=== PATIENT | female | born 1945 | race Caucasian/White ===

== ENCOUNTER 2017-12-03 19:41 | Emergency (ER) | payer OTHER ==
[~2017-12-03] VITALS: Ht 156.2 cm; Wt 81.8 kg
[~2017-12-03 19:41] MED LIST: 1-ME1LIQ PO; ATOR10 PO; CEPH500T PO; GABA600T PO; LORTA5 PO; NAPR500 PO; Z.0.COMMODE-3:1; Z.0.CPM; Z.0.WALKERFRONT
[2017-12-03 19:42] VITALS: BP 153/69; PULSE 85; RESP 14; TEMP 97.9; O2SAT 96
[2017-12-03] MEDS ORDERED: GABA600T PO (19:58)
[2017-12-03] MEDS ORDERED: CARB1TAB52 PO (19:58)
[2017-12-03] MEDS ORDERED: HTN med (19:58)
[2017-12-03] MEDS ORDERED: ATOR10TA15 PO (19:58)
--- NOTE | 2017-12-03 20:05 | PD ---
HPI Chief Complaint: Lump, Cyst, Hernia Time Seen by Provider: 19:51 Travel History International Travel<30 days: No Contact w/Intl Traveler<30days: No Traveled to known affect area: No History of Present Illness HPI 72-year-old female presents emergency department for evaluation of a lump on the right inner thigh that she noticed this morning. Since that she was in bed tonight changing into her nightgown when she noticed a lump on the inner thigh that was tender and extended to the knee. She decided to come in today because she is concerned about a potential blood clot of her leg. She denies numbness or tingling. Says the site is tender palpation but denies significant pain while resting. She denies recent travel, surgery, immobilizations, history of DVT/PE. She denies any heart condition. She notes that she had what she thought was a "boil" in her groin area that resolved spontaneously and thought maybe this was related. PFSH Past Medical History Anxiety: No Depression: No Cancer: No Cardiac Catheterization: Yes Cardiovascular Problems: No High Cholesterol: Yes Chemotherapy: No Diabetes: No Diminished Hearing: No Endocrine: No Genitourinary: No Hepatitis: No Hiatal Hernia: No Hypertension: Yes Immune Disorder: No Kidney Stones: No Musculoskeletal: Yes (ARTHRITIS) Neurologic: Yes (NEUROPATHY FEET) Psychiatric: No Reproductive: No Respiratory: No Immunizations Current: Yes Radiation Therapy: No Sickle Cell Disease: No Thyroid Disease: No ?: Not Menopausal: Yes : 5 Para: 3 Miscarriage: 2 Tubal Ligation: Yes Past Surgical History Abdominal Surgery: Yes (LAP. PEDRO) AICD: No Cholecystectomy: Yes Genitourinary Surgery: Yes (BLADDER SUSP.) Gynecologic Surgery: Yes (HYSTERECTOMY) Hysterectomy: Yes Joint Replacement: No Pacemaker: No Other Surgery: Yes (COCCYX SX, BLADDER SX) Social History Alcohol Use: Yes (SOC) Tobacco Use: No Substance Use: No Allergies-Medications (Allergen,Severity, Reaction): Coded Allergies: No Known Allergies (Verified Adverse Reaction, Unknown, 12/03/17) Reported Meds & Prescriptions Reported Meds & Active Scripts Active Reported Carbidopa 25 Mg Tab 12.5 Mg PO DAILY [HTN med] Atorvastatin (Atorvastatin Calcium) 10 Mg Tab 10 Mg PO HS Gabapentin 600 Mg Tab 600 Mg PO TID Review of Systems Except as stated in HPI: all other systems reviewed are Neg Physical Exam Narrative GENERAL: Well-nourished, well-developed patient, in NAD SKIN: Focused skin assessment warm/dry. No rashes or lesions. HEAD: Normocephalic. Atraumatic. EYES: No scleral icterus. No injection or drainage. NECK: Supple, trachea midline. No JVD. CARDIOVASCULAR: Regular rate and rhythm without murmurs, gallops, or rubs. RESPIRATORY: Breath sounds equal bilaterally. No accessory muscle use. No wheezes, rales, or rhonchi MUSCULOSKELETAL: No cyanosis, or edema. Right thigh-mid inner thigh with a 5 cm round fluctuant mass without central puncta. Mild tenderness palpation to the area. There is a palpable cord that extends distally to the knee in line with the cystic structure. Distal pulses present. Neurovascularly intact. BACK: Nontender without obvious deformity. No CVA tenderness. Data Data Last Documented VS Vital Signs Date Time Temp Pulse Resp B/P (MAP) Pulse Ox O2 Delivery O2 Flow Rate FiO2 12/03/17 19:42 97.9 85 14 153/69 (97) 96 Orders Orders Us Leg Venous Doppler (12/03/17 ) MDM Medical Decision Making Medical Screen Exam Complete: Yes Emergency Medical Condition: Yes Differential Diagnosis Right thigh DVT, superficial vein thrombosis, cellulitis, erysipelas, abscess, thrombophlebitis Narrative Course 72-year-old female presents emergency department for evaluation of a lump on the right inner thigh that she noticed this morning. Since that she was in bed tonight changing into her nightgown when she noticed a lump on the inner thigh that was tender and extended to the knee. She decided to come in today because she is concerned about a potential blood clot of her leg. She denies numbness or tingling. Says the site is tender palpation but denies significant pain while resting. She denies recent travel, surgery, immobilizations, history of DVT/PE. She denies any heart condition. She notes that she had what she thought was a "boil" in her groin area that resolved spontaneously and thought maybe this was related. She admits that she had an injection to the right hip under anesthesia in August with her orthopedist. Vital signs are stable. Physical exam findings consistent with a lipoma versus DVT versus superficial vein thrombosis. I initially ordered an ultrasound for evaluation. I discussed this case with Dr. Casillas. He believes that this did not require an ultrasound at this point. Ultrasound was cancelled. Patient was advised to follow-up with her primary care physician tomorrow. Advised to return if the lesion enlarged, became more swollen, erythematous. She states understanding will comply. Diagnosis Primary Impression: Cyst Additional Impression: Lipoma Qualified Codes: D17.23 - Benign lipomatous neoplasm of skin and subcutaneous tissue of right leg Referrals: Primary Care Physician Additional Instructions: Follow up with your primary care physician within 2-3 days. If your symptoms persist or worsen, return to the emergency department. you may use warm compresses to reduce swelling or pain. If heat does no reduce your pain, you may consider using cool compresses. Disposition: 01 DISCHARGE HOME Condition: Stable Zena Barnes December 03, 2017 20:05
--- NOTE | 2017-12-03 21:02 | PD ---
Data Data Last Documented VS Vital Signs Date Time Temp Pulse Resp B/P (MAP) Pulse Ox O2 Delivery O2 Flow Rate FiO2 12/03/17 19:42 97.9 85 14 153/69 (97) 96 MDM Supervised Visit with TAN: Yes Narrative Course I, Dr. Casillas, have reviewed the advance practice practitioner's documentation and am in agreement, met with the patient face to face, made the diagnosis, and the medical decision making was done by me. *My assessment and Findings: I examined this patient. She is got a lipoma-like growth in the right mid thigh. There is no tenderness redness warmth or fluctuance. No sign of infection here. Is clearly not a DVT. I do not feel she needs to have an ultrasound. She should follow-up with primary care Diagnosis Primary Impression: Cyst Referrals: Primary Care Physician Additional Instruction: Follow up with your primary care physician within 2-3 days. If your symptoms persist or worsen, return to the emergency department. you may use warm compresses to reduce swelling or pain. If heat does no reduce your pain, you may consider using cool compresses. Disposition: 01 DISCHARGE HOME Condition: Stable Bret Casillas MD December 03, 2017 21:02
== END 2017-12-03 21:09 | disposition home or self-care (01) ==
LOC: PHEFT 19:41
DX: D17.23 Benign lipomatous neoplasm of skin and subcutaneous tissue of right leg (principal); E78.00 Pure hypercholesterolemia, unspecified; I10 Essential (primary) hypertension
CPT/HCPCS: 99282